=== PATIENT | male | born 1995 | race Caucasian/White ===

== ENCOUNTER 2017-06-23 09:45 | Outpatient (RCR) | payer MEDICAID ==
--- NOTE | 2017-05-10 11:42 | SPEECH INITIAL EVALUATION ---
INITIAL SPEECH THERAPY EVALUATION REPORT Patient Name: Eddie White Date of Evaluation: 04-04-17, 05-04-17 Patient : 1995 22yrs Clinician: Melany Rutherford M.S., [facility]-BOOKBINDER APPRENTICE Treatment Dx: Functional Communication Deficits 2nd Autism BACKGROUND The patient is a 22 year old male who lives at home with his parents. He has several adult siblings who no longer live at home. 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 He has was appears to be a strong vocation support group who he meets with every morning before beginning work. During the meeting he and group facilitators review the days schedule and job responsibilities. His [employer] vocational support group facilitators report the patient is struggling with transitioning between tasks as well as appropriate social interaction with colleagues and customers. LANGUAGE The [place] Cognitive Assessment (MoCA) was administered with the following results: -MoCA Total Score (TS): 30/30 = WNL -Cognitive Domains Demonstrating Deficits: visuospatial, attention, delayed recall. -Cognitive Domains Demonstrating Strength: The patient demonstrated strengths in all cognitive domains. Testing Strategies: The patient demonstrated functional test taking strategies. He maintained focus on task throughout the exam. He followed instructions easily without repetitions. He initiated and completed tasks independently and appropriately. SOCIAL SKILLS ASSESSMENT Vocational Social Skills Evaluation 1=needs max assist 2=needs mod assist 3=needs min assist, 4=needs only intermittent min assist 5=independent Skills/BehaviorsEvaluated: Following directions: 4; inflexible/concrete thinking Asking for assistance / Accepting help: 3; decreased self recognition of errors Asking questions: 4; pt typically asks questions in a clear and functional way Requesting clarification of a work task 3; lack of self awareness decreases recognition of need for assistance Responding to corrective feedback: 4; pt typically responds to corrective feedback positively and modifies behavior appropriately if instructions are clearly understood Explaining a problem: 2; pt struggles to identify and explain problems particularly interpersonal matters Problem Solvin Pt has strong problem solving skills though results may not always be social/behaviorally appropriate for situation Monitoring time: 4; pt uses a watch/clock independently and is typically successful at indep. Monitoring time Navigating job site: 4; pt navigates job site independently Inappropriate comments/behavior: 2; pt communication/interaction with colleagues/customers can be socially inappropriate/tangential/indirect SUMMARY The patient demonstrates many strengths that will help him be a successful employee in his position at [employer]. Strengths include ability to focus on tasks, monitoring time, navigating job site, overall cognitive strengths. The patient demonstrates deficits in several social skills that are directly related to vocational success. Deficits include concrete thinking, recognition/ explanation of social errors/inappropriateness, transitions between tasks / ideas / conversational subject. Scheduling was difficult with the patient as he did not call as instructed. Messages were left with his father and vocational team for him to call and schedule which was successful. RECOMMENDATIONS The patient would benefit from ST to address vocational social skills to increase success with his transition into work. Prognosis: Good. Pt has good support at home and is open to participating in therapy POC Short Term Goals 1. The patient will demonstrate appropriate identification/solution to 15/15 high frequency vocational social situations with min assist. 2. The patient will demonstrate skills/strategies for successful transition between job tasks with min assist at 15/15 opportunities 3. The patient will demonstrate consistent use of appropriate pragmatic behavior over 4 weeks with his coworkers for greetings and salutations as reported by pt and vocational support facilitators. 4. 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 Steamer Gum Candy Goals The patient will demonstrate successful transition to work within the community Thank you for this referral. Please call [phone] Melany Rutherford M.S., CCC-BOOKBINDER APPRENTICE Physician Signature Date MTDD
--- NOTE | 2017-06-07 14:47 | SLP PLAN OF CARE ---
SPEECH PATHOLOGY PROGRESS REPORT 10th Visit Physician: Remy Ch MD Progress Note Date: 06/01/2017 Clinician: Melany Rutherford M.S., CCC-TRACK SURFACING MACHINE OPERATOR, Elizabeth Ortiz, BHAVNA Patient: Eddie White : 1995 The patient has been attending ST at [facility] 2x/wk since 05/04/2017. He has attended all but one of his scheduled sessions. ST has aligned goals to support his general goals for the [employer]. The pt continues to be motivated during sessions and takes pride in his work as evidenced by pt report and progress. Current POC Short Term Goals: 1. The patient will demonstrate appropriate identification/solution to 15/15 high frequency vocational social situations with min assist. DC: Goal Met: The patient averaged 72% on identification of solutions to vocational social situations with moderate verbal prompting. Repetition and leading questions aid in accurate responses. 2. The patient will demonstrate skills/strategies for successful transition between job tasks with min assist at 15/15 opportunities. DC: Goal Met: Given initial verbal directions, the patient appropriately transitioned to speech therapy on his schedule visits. The patient is also improving with transitions at work given checklists and schedules as reported by the [employer] Team. 3. The patient will demonstrate consistent use of appropriate pragmatic behavior over 4 weeks with his coworkers for greetings and salutations as reported by patient and vocational support facilitators. DC: Goal Met [employer] reported that the patient presents with more appropriate behavior in the workplace since starting with [employer]. 4. 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 DC: Goal Met: Therapy incorporated practice with common interview questions. The patient participated in mock interviews and answered questions (e.g., What are your strengths?) with 80% accuracy independently. [employer] reported that his cover letters have improved since beginning [employer]. 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 Updated POC The patient will work on the following goals: Short Term Goals: 1.The patient will interpret social situations/communication (e.g., feelings, figurative language, etc.) in 8/10 trials given mod assist. 2.The patient will complete tasks to promote independent living (e.g., financial sales assistant, safety in the home, etc.) in 8/10 trials given mod assist. 3.The patient will appropriately answer functional wh questions in 8/10 trials given mod assist. Senior Care Goal Pt will demonstrate successful transition to independent living. SUMMARY Continue updated POC to align with the patients/familys intermediate card tender goal of pt. independent living. The patient continues to benefit from structured treatment sessions, incorporating a point system and a visual schedule. RECOMMENDATION Patient would benefit from continued skilled ST 2wk12 to address above POC Thank you for [place] [facility]. Please call [phone] to contact the TRACK SURFACING MACHINE OPERATOR. Respectfully, Melany Rutherford M.S., [facility]-TRACK SURFACING MACHINE OPERATOR, Elizabeth Ortiz, [facility] Physician Signature Date MTDD
== END 2017-07-03 ==
LOC: ST 09:45
PROVIDERS: ATTEND Pediatrics Adolescent Medicine
DX: F80.9 Developmental disorder of speech and language, unspecified (principal)

== ENCOUNTER 2017-08-24 09:47 | Outpatient (RCR) | payer MEDICAID ==
--- NOTE | 2017-07-14 17:50 | SLP PLAN OF CARE ---
SPEECH PATHOLOGY PROGRESS REPORT 10th Visit Physician: Remy Ch MD Progress Note Date: 07/13/2017 Clinician: Melany Rutherford M.S., CCC-STNA, BHAVNA [place] Patient: Eddie White : 1995 The patient has been attending ST at [facility] 2x/wk since 05/04/2017. He has attended all but two of his scheduled sessions. ST has aligned goals to support his goals for his new job and independent living environment. Goals specifically address pragmatics in the community, nonprofit financial controller, and home safety. Sessions are structured w/ a visual schedule, a reward chart, and a timer for breaks. The patient continues to take pride in his work and completing tasks. Current POC Short Term Goals: 1.The patient will interpret social situations/communication (e.g., feelings, figurative language, etc.) in 8/10 trials given mod assist. Current performance: 70% w/ mod assist. 2. The patient will complete tasks to promote independent living (e.g., nonprofit financial controller, safety in the home, etc.) in 8/10 trials given mod assist. GOAL MET: 88% w/ mod assist. 3.The patient will appropriately answer functional wh questions in 8/10 trials given mod assist. Current Performance: 70% w/ mod assist. Penitentiary Goal Pt will demonstrate successful transition to independent living. Update POC 1.The patient will interpret social situations/communication (e.g., feelings, figurative language, etc.) in 8/10 trials given mod assist. 2.The patient will complete tasks to promote independent living (e.g., nonprofit financial controller, safety in the home, etc.) in 8/10 trials given min assist. Goal modified to reflect need for reduced assist 3.The patient will appropriately answer functional wh questions in 8/10 trials given mod assist. Director [facility] Goal Pt will demonstrate successful transition to independent living. SUMMARY Continue updated POC to align with the patients/familys mcfp goal for pt. The pt continues to benefit w/ cues involving leading questions in order to accurately answer functional wh and independent living questions. Visuals, leading questions, and multiple choice options aid in accurately interpreting social situations and feelings. RECOMMENDATION Patient would benefit from continued ST 2wk12 to address above POC Thank you for referring this patient to [facility], Speech- Language Pathology. Please call [phone] to contact the STNA. Respectfully, Melany Rutherford M.S., [facility], Elizabeth Ortiz, [facility] Physician Signature Date MTDD
--- NOTE | 2017-08-25 09:07 | SLP DISCHARGE NOTE ---
SPEECH THERAPY DISCHARGE SUMMARY REPORT Patient Name: Eddie White Date of Discharge: 08/24/2017 Patient : 1995 Clinician: Melany Rutherford M.S., ANUJA-ROUTING CLERK; Donna Smith B.A., [facility] [place] Treatment Dx: Developmental Disorder of Speech and Language, Unspecified The pt has attended the allotted 20 visits and has met his goals. He is DC'd from as of 08/24/17 The patient has met the following goals: Short Term Goal 1.The patient will interpret social situations/communication (e.g., feelings, figurative language, etc.) in 8/10 trials given mod assist. 2.The patient will complete tasks to promote independent living (e.g., financial services auditor, safety in the home, etc.) in 8/10 trials given min assist. 3.The patient will appropriately answer functional wh questions in 8/10 trials given mod assist. Golf Cart Maker Goal 1.The patient will demonstrate successful transition to independent living. DC SUMMARY The patient has met his short and detention ST goals over [address] He will be DC'd from at this time. The patient has demonstrated independence transitioning to employment and independent living. He will be graduation from [employer] as of 09/07/17. It was a pleasure working with this patient. RECOMMENDATION DC from at this time. The patient is welcome to return to Outpatient Rehab at [facility] in the future if appropriate. Thank you for referring this patient to [facility], Speech- Language Pathology. Please call [phone] to contact the ROUTING CLERK. Respectfully, Melany Rutherford M.S., CCC-ROUTING CLERK ALEXANDER
== END 2017-08-24 18:00 | disposition home or self-care (01) ==
LOC: ST 09:47
PROVIDERS: ATTEND Pediatrics Adolescent Medicine
DX: F80.9 Developmental disorder of speech and language, unspecified (principal)